=== PATIENT | female | born 1955 | race Hispanic/Latino ===

== ENCOUNTER → 2016-06-05 | Outpatient (CLI) | payer BC ==
[2016-06-05 10:46] LABS: BLOOD UREA NITROGEN 26 mg/dL (7-22); BUN/CREATININE RATIO 28.88 (6-20); CALCIUM 9.9 mg/dL (8.7-10.7); CHLORIDE 107 meq/L (98-112); CREATININE 0.9 mg/dL (0.50-1.20); EST GLOMERULAR FILTRATION > 60 (>60 ml/min/1.73m(2)); GLUCOSE 95 mg/dL (78-110); MAGNESIUM 2.2 mg/dL (1.6-2.4); SODIUM 140 meq/L (135-145)
== END ==
LOC: MOB LAB 09:04
PROVIDERS: ATTEND Specialist
DX: E87.6 Hypokalemia (principal); E87.1 Hypo-osmolality and hyponatremia; I10 Essential (primary) hypertension
CPT/HCPCS: 36415; 80048; 83735

== ENCOUNTER → 2016-10-16 | Outpatient (CLI) | payer BC ==
[2016-10-16 15:35] LABS: MAGNESIUM 2.1 mg/dL (1.6-2.4)
== END ==
LOC: MOB LAB 14:46
PROVIDERS: ATTEND Specialist
DX: I10 Essential (primary) hypertension (principal); C91.10 Chronic lymphocytic leukemia of B-cell type not having achieved remission; R53.83 Other fatigue
CPT/HCPCS: 36415; 80048; 83735